=== PATIENT | male | born 1945 | race Caucasian/White ===

== ENCOUNTER 2017-03-07 15:49 | Inpatient (IN) | payer OTHER, MEDICARE ==
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
[2017-03-07] MEDS ORDERED: ONDANSETRON HCL INJ/PF 4 MG/2 ML SDV IV ONE (16:50)
[2017-03-07] MEDS ORDERED: FENTANYL CITRATE INJ/PF 100 MCG/2 ML AMPUL IV ONE (16:51)
[2017-03-07 17:17] LABS: ABSOLUTE LYMPHOCYTES (AUTO) 0.8 10^3/uL (0.5-4.7); ABSOLUTE MONOCYTES (AUTO) 0.8 10^3/uL (0.1-1.4); ABSOLUTE NEUT (AUTO) 11.2 10^3/uL (1.7-8.2); BASOPHILS % (AUTO) 0.4 % (0-2); EOSINOPHILS % (AUTO) 0.2 % (0-6); HEMATOCRIT 35.5 % (37.9-51.0); HEMOGLOBIN 12.2 g/dL (13.5-17.0); HGB HCT DIFFERENCE 1.1; LYMPHOCYTES % (AUTO) 6.2 % (13-45); MEAN CORPUSCULAR HEMOGLOBIN 30.4 pg (27.0-33.4); MEAN CORPUSCULAR HGB CONC 34.5 g/dL (32.0-36.0); MEAN CORPUSCULAR VOLUME 88 fl (80-97); MONOCYTES % (AUTO) 6.5 % (3-13); RED BLOOD COUNT 4.02 10^6/uL (4.35-5.55); RED CELL DISTRIBUTION WIDTH 13.8 % (11.5-14.0); SEGMENTED NEUTROPHILS % (AUTO) 86.7 % (42-78)
--- NOTE | 2017-03-07 17:34 | EKG REPORT ---
SEVERITY:- ABNORMAL ECG - SINUS RHYTHM INFERIOR INFARCT, AGE INDETERMINATE NONSPECIFIC T ABNORMALITIES, ANTERIOR LEADS : Confirmed by: Obdulia Bergman MD 07-Mar-2017 17:33:51
[2017-03-07 17:37] LABS: ALANINE AMINOTRANSFERASE 35 U/L (21-72); ALBUMIN 4.2 g/dL (3.5-5.0); ALKALINE PHOSPHATASE 30 U/L (38-126); ANION GAP 12 (5-19); ASPARTATE AMINO TRANSFERASE 31 U/L (17-59); BILIRUBIN,DIRECT 0.3 mg/dL (0.0-0.4); BILIRUBIN,TOTAL 0.4 mg/dL (0.2-1.3); BLOOD UREA NITROGEN 14 mg/dL (7-20); CALCIUM 9.3 mg/dL (8.4-10.2); CARBON DIOXIDE 28 mmol/L (22-30); CHLORIDE 102 mmol/L (98-107); CREATINE KINASE 100 U/L (55-170); CREATININE RESULT 0.87 mg/dL (0.52-1.25); GLUCOSE 149 mg/dL (75-110); POTASSIUM 3.8 mmol/L (3.6-5.0); SODIUM 142.4 mmol/L (137-145); TOTAL PROTEIN 6.4 g/dL (6.3-8.2)
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
[2017-03-07 18:43] LABS: PROTHROMBIN TIME 12.8 SEC (11.4-15.4)
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
[2017-03-07] MEDS ORDERED: ACETAMINOPHEN 325 MG TABLET PO PRN (19:00)
[2017-03-07] MEDS ORDERED: TRAZODONE HCL 50 MG TABLET PO PRN (19:09)
[2017-03-07] MEDS: POTASSI CL 20 MEQ/1/2NS 1L 20 MEQ/1,000 ML RTUINJ IV PRN (20:03)
[2017-03-07] MEDS: OXYCODONE-ACETAMINOPHEN 5-325 MG TABLET PO PRN (20:05)
[2017-03-07] MEDS ORDERED: MORPHINE SULFATE 10 MG/ML INJ ONE (21:58)
[2017-03-07] MEDS: MORPHINE SULFATE 10 MG/ML INJ IV PRN (22:04)
[2017-03-08] MEDS: MORPHINE SULFATE 10 MG/ML INJ IV PRN ×8 (01:47→22:46)
[2017-03-08] MEDS: OXYCODONE-ACETAMINOPHEN 5-325 MG TABLET PO PRN ×3 (02:44→20:13)
[2017-03-08 06:24] LABS: ABSOLUTE LYMPHOCYTES (AUTO) 1.1 10^3/uL (0.5-4.7); ABSOLUTE MONOCYTES (AUTO) 0.9 10^3/uL (0.1-1.4); BASOPHILS % (AUTO) 0.1 % (0-2); EOSINOPHILS % (AUTO) 0.1 % (0-6); HEMATOCRIT 26.2 % (37.9-51.0); HGB HCT DIFFERENCE 1.7; LYMPHOCYTES % (AUTO) 13.4 % (13-45); MEAN CORPUSCULAR HGB CONC 35.6 g/dL (32.0-36.0); MEAN CORPUSCULAR VOLUME 87 fl (80-97); MONOCYTES % (AUTO) 11.2 % (3-13); RED CELL DISTRIBUTION WIDTH 13.7 % (11.5-14.0); SEGMENTED NEUTROPHILS % (AUTO) 75.2 % (42-78)
[2017-03-08 06:27] LABS: HEMOGLOBIN 9.3 g/dL (13.5-17.0)
[2017-03-08 06:31] LABS: ANION GAP 9 (5-19); BLOOD UREA NITROGEN 19 mg/dL (7-20); CALCIUM 8.4 mg/dL (8.4-10.2); CARBON DIOXIDE 28 mmol/L (22-30); CHLORIDE 101 mmol/L (98-107); GLUCOSE 126 mg/dL (75-110); MAGNESIUM 2.1 mg/dL (1.6-2.3); POTASSIUM 4.6 mmol/L (3.6-5.0); SODIUM 138.3 mmol/L (137-145)
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
[2017-03-08] MEDS: POTASSI CL 20 MEQ/1/2NS 1L 20 MEQ/1,000 ML RTUINJ IV PRN (15:37)
--- NOTE | 2017-03-08 16:19 | PDOC PROGRESS REPORT ---
Subjective Progress Note for:: 03/08/17 Subjective:: This is a follow-up visit for right hip fracture. The patient's pain is under reasonable control. He is a bit disappointed that he will get a surgery to tomorrow. I have informed him that it will be at 7:30 in the morning. No acute events overnight. The patient does complain that he did not sleep a week. Physical Exam Vital Signs: Temp Pulse Resp BP Pulse Ox 99.0 F 91 14 111/69 96 03/08/17 07:34 03/08/17 07:34 03/08/17 07:34 03/08/17 07:34 03/08/17 07:34 Intake & Output 03/07/17 03/08/17 03/09/17 06:59 06:59 06:59 Intake Total 961 Output Total 350 Balance 611 Weight 77.9 kg GENERAL: This is a well-developed well-nourished appearing elderly white male resting in bed currently in no acute distress. HEART: Regular rate and rhythm. No murmurs, rubs or gallops. LUNGS: Clear to auscultation anteriorly bilaterally with equal rise and fall of the chest. ABDOMEN: Soft, nontender, nondistended with normoactive bowel sounds EXTREMETIES: No clubbing, cyanosis or edema. His right leg is shorter and outwardly rotated. 2+ peripheral pulses bilaterally. NEURO: Awake, alert and oriented 3. Cranial nerves II through XII are grossly intact. Skin: Warm dry and normal color. Results Laboratory Results: 03/08/17 05:45 03/08/17 05:45 03/08/17 03/08/17 05:45 05:45 WBC 8.0 RBC 3.00 L Hgb 9.3 L D Hct 26.2 L MCV 87 MCH 31.0 MCHC 35.6 RDW 13.7 Plt Count 132 L Seg Neutrophils % 75.2 Lymphocytes % 13.4 Monocytes % 11.2 Eosinophils % 0.1 Basophils % 0.1 Absolute Neutrophils 6.0 Absolute Lymphocytes 1.1 Absolute Monocytes 0.9 Absolute Eosinophils 0.0 Absolute Basophils 0.0 Sodium 138.3 Potassium 4.6 Chloride 101 Carbon Dioxide 28 Anion Gap 9 BUN 19 Creatinine 0.90 Est GFR ( Amer) > 60 Est GFR (Non-Af Amer) > 60 Glucose 126 H Calcium 8.4 Magnesium 2.1 Impressions: Chest X-Ray 03/07/17 00:00 IMPRESSION: NO ACUTE RADIOGRAPHIC FINDING IN THE CHEST. Hip/Pelvis X-Ray 03/07/17 16:34 IMPRESSION: Right hip fracture. Assessment & Plan - Diagnosis (1) Closed right hip fracture Is this a current diagnosis for this admission?: Yes Plan: The plan is for surgery tomorrow. Cardiology has been consulted for clearance. (2) CAD (coronary artery disease) Qualifiers: Coronary Disease-Associated Artery/Lesion type: [place] artery Plan: He states that he had a cardiac cath this past and no stents were placed at that time. He has a history of 4 stents placed in the past. He does not seem to be in any sort of antiplatelets medication. Continue nifedipine. (3) HLD (hyperlipidemia) Plan: Continue simvastatin.. (4) BPH (benign prostatic hyperplasia) Plan: He does not appear to be on any BPH medications. (5) Chronic pain Qualifiers: Chronic pain type: chronic pain syndrome Qualified Code(s): G89.4 - Chronic pain syndrome Plan: Patient has a history of fibromyalgia and injuries to his left rotator cuff. He states that he is on nightly opioids. (6) Narcotic dependence Plan: This appears to be continuous use. Patient states that he takes 10 mg of OxyContin as well as 5 mg of oxycodone and hydrocodone at night before bed. He states he also takes trazodone. (7) Chronic insomnia Plan: Likely this is due his general medical conditions. He is on 2 different agents. We will increase his trazodone to his home dose of 100 nightly. As far as his belsomra, he will need to bring that in from home. - Time Time Spent with patient: 15-24 minutes - Inpatient Certification Based on my medical assessment, after consideration of the patient's comorbidities, presenting symptoms, or acuity I expect that the services needed warrant INPATIENT care.: Yes Medical Necessity: Need Close Monitoring Due to Risk of Patient Decompensation
[2017-03-08] MEDS ORDERED: TRAZODONE HCL 50 MG TABLET PO PRN (16:28)
[2017-03-08] MEDS ORDERED: (PENDING PHARMACY ID) (Suvorexant [Belsomra] 20 MG) PO SCH ×2 (17:00→22:00)
[2017-03-08] MEDS: METOCLOPRAMIDE HCL 10 MG TABLET PO SCH (18:36)
--- NOTE | 2017-03-08 18:52 | XCELERA REPORT ---
[address] [address] Transthoracic Echocardiogram Report Name: SHAYY LEON Age: 72 yrs Gender: Male : 1945 Patient Status: Inpatient Patient Location: [address] [place] [address] Study Date: 03/08/2017 02:59 PM Height: 69 in Weight: 171 lb BSA: 1.9 m2 Procedure: A complete two-dimensional transthoracic echocardiogram was performed (2D, M-mode, spectral and color flow Doppler). The study was technically difficult with many images being suboptimal in quality. Reason For Study: cad, abn ekg Ordering Physician: DERIC CALHOUN Performed By: Evelyn Armstrong Interpretation Summary The study was technically difficult with many images being suboptimal in quality. The left ventricular ejection fraction is preserved. Consider additional methods to assess LVEF such as MUGA scan, CTA heart, cardiac MRI, RAMIN, etc. if clinically indicated. There is mild concentric left ventricular hypertrophy. The left ventricle is grossly normal size. LV diastolic function could not be adequately assessed. Regional wall motion abnormalities cannot be excluded due to limited visualization. Not all wall segments were well visualized. Right ventricular function cannot be assessed due to poor image quality. The left atrial size is normal. The right atrium is normal. There is a trace amount of mitral regurgitation There is no mitral valve stenosis. There is moderate aortic stenosis There is a trace or physiologic amount of tricuspid regurgitation Tricuspid regurgitation jet envelope not well defined to measure RV systolic pressure accurately. The aortic root is not well visualized. The inferior vena cava was not well visualized There is no pericardial effusion. MMode/2D Measurements & Calculations RVDd: 2.3 cm LVIDd: 4.1 cm FS: 35.9 % Ao root diam: 3.2 cm IVSd: 1.0 cm LVIDs: 2.7 cm EDV(Teich): 76.0 ml LVPWd: 1.0 cm ESV(Teich): 25.9 ml Ao root area: 8.0 cm2 EF(Teich): 65.9 % LA dimension: 3.2 cm LVOT diam: 2.0 cm LVOT area: 3.1 cm2 Doppler Measurements & Calculations MV E max pau: MV P1/2t max pau: Ao V2 max: LV V1 max P.2 cm/sec 62.2 cm/sec 346.9 cm/sec 3.5 mmHg MV A max pau: MV P1/2t: 47.5 msec Ao max PG: LV V1 mean P.9 cm/sec MVA(P1/2t): 4.6 cm2 48.2 mmHg 1.6 mmHg MV E/A: 0.49 MV dec slope: Ao V2 mean: LV V1 max: 383.2 cm/sec2 253.9 cm/sec 93.3 cm/sec Ao mean PG: LV V1 mean: 29.9 mmHg 57.6 cm/sec Ao V2 VTI: 70.6 cmLV V1 VTI: JT(I,D): 0.65 cm215.0 cm JT(V,D): 0.83 cm2 SV(LVOT): 46.1 ml PA V2 max: 102.2 cm/sec PA max P.2 mmHg Left Ventricle The left ventricle is grossly normal size. There is mild concentric left ventricular hypertrophy. The left ventricular ejection fraction is preserved. Consider additional methods to assess LVEF such as MUGA scan, CTA heart, cardiac MRI, RAMIN, etc. if clinically indicated. LV diastolic function could not be adequately assessed. Not all wall segments were well visualized. Regional wall motion abnormalities cannot be excluded due to limited visualization. Right Ventricle The right ventricle is grossly normal size. Right ventricular function cannot be assessed due to poor image quality. Atria The right atrium is normal. The left atrial size is normal. Interarterial septum not well visualized and not well dopplered. Cannot comment on ASD/PFO presence. Mitral Valve The mitral valve is not well visualized. There is no mitral valve stenosis. There is a trace amount of mitral regurgitation. Aortic Valve The aortic valve is mildly calcified. There is moderate aortic stenosis. No aortic regurgitation is present. Tricuspid Valve The tricuspid valve is not well visualized secondary to technical limitations. There is a trace or physiologic amount of tricuspid regurgitation. Tricuspid regurgitation jet envelope not well defined to measure RV systolic pressure accurately. Pulmonic Valve The pulmonic valve is not well visualized. Great Vessels The aortic root is not well visualized. The inferior vena cava was not well visualized. Effusions There is no pericardial effusion. : DERIC CALHOUN > Deric Calhoun
[2017-03-08] MEDS ORDERED: MORPHINE SULFATE 10 MG/ML INJ IV ONE (19:00)
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
[2017-03-08] MEDS ORDERED: PREGABALIN 25 MG CAPSULE PO SCH (22:00)
[2017-03-08] MEDS: PREGABALIN 50 MG CAPSULE PO SCH (22:48)
[2017-03-08] MEDS: CLONAZEPAM 1 MG TABLET PO SCH (22:48)
[2017-03-08] MEDS: OXYCODONE HCL SR 10 MG TABLET PO SCH (22:48)
[2017-03-08] MEDS: SIMVASTATIN 40 MG TABLET PO SCH (22:49)
[2017-03-09] MEDS: RINGERS SOLUTION,LACTATED 1,000 ML IV PRN ×2 (00:54→08:20)
[2017-03-09] MEDS: MORPHINE SULFATE 10 MG/ML INJ IV PRN ×4 (02:50→18:00)
[2017-03-09] MEDS ORDERED: CEFAZOLIN 2 GM/D5W RTU 2 GM/50 ML RTUPB IV PRN (05:00)
[2017-03-09 06:38] LABS: ABSOLUTE LYMPHOCYTES (AUTO) 1.5 10^3/uL (0.5-4.7); ABSOLUTE MONOCYTES (AUTO) 0.9 10^3/uL (0.1-1.4); ABSOLUTE NEUT (AUTO) 5.4 10^3/uL (1.7-8.2); BASOPHILS % (AUTO) 0.3 % (0-2); EOSINOPHILS % (AUTO) 0.3 % (0-6); HEMATOCRIT 21.3 % (37.9-51.0); HGB HCT DIFFERENCE 1.2; LYMPHOCYTES % (AUTO) 19.6 % (13-45); MEAN CORPUSCULAR VOLUME 88 fl (80-97); RED BLOOD COUNT 2.41 10^6/uL (4.35-5.55); RED CELL DISTRIBUTION WIDTH 13.6 % (11.5-14.0); SEGMENTED NEUTROPHILS % (AUTO) 68.8 % (42-78); WHITE BLOOD COUNT 7.8 10^3/uL (4.0-10.5)
[2017-03-09 06:41] LABS: HEMOGLOBIN 7.5 g/dL (13.5-17.0)
[2017-03-09 06:45] LABS: ANION GAP 7 (5-19); BLOOD UREA NITROGEN 14 mg/dL (7-20); CALCIUM 8.4 mg/dL (8.4-10.2); CARBON DIOXIDE 29 mmol/L (22-30); CHLORIDE 100 mmol/L (98-107); CREATININE RESULT 0.71 mg/dL (0.52-1.25); GLUCOSE 121 mg/dL (75-110); POTASSIUM 4.4 mmol/L (3.6-5.0); SODIUM 135.5 mmol/L (137-145)
[2017-03-09] MEDS ORDERED: ACETAMINOPHEN 325 MG TABLET PO PRN (06:47)
[2017-03-09] MEDS ORDERED: FUROSEMIDE 20 MG TABLET PO PRN (06:47)
[2017-03-09] MEDS ORDERED: NORMAL SALINE 250 ML IV PRN ×2 (06:47)
--- NOTE | 2017-03-09 06:49 | PDOC PROGRESS REPORT ---
Subjective Progress Note for:: 03/09/17 Physical Exam Vital Signs: Temp Pulse Resp BP Pulse Ox 37.5 C 99 14 110/65 94 03/09/17 03:51 03/09/17 03:51 03/09/17 03:51 03/09/17 03:51 03/09/17 03:51 Intake & Output 03/07/17 03/08/17 03/09/17 06:59 06:59 06:59 Intake Total 961 2155 Output Total 350 925 Balance 611 1230 Weight 77.9 kg 83.5 kg Results Laboratory Results: 03/09/17 06:05 03/09/17 06:05 03/09/17 03/09/17 06:05 06:05 WBC 7.8 RBC 2.41 L Hgb 7.5 L Hct 21.3 L MCV 88 MCH 31.0 MCHC 35.0 RDW 13.6 Plt Count 101 L Seg Neutrophils % 68.8 Lymphocytes % 19.6 Monocytes % 11.0 Eosinophils % 0.3 Basophils % 0.3 Absolute Neutrophils 5.4 Absolute Lymphocytes 1.5 Absolute Monocytes 0.9 Absolute Eosinophils 0.0 Absolute Basophils 0.0 Sodium 135.5 L Potassium 4.4 Chloride 100 Carbon Dioxide 29 Anion Gap 7 BUN 14 Creatinine 0.71 Est GFR ( Amer) > 60 Est GFR (Non-Af Amer) > 60 Glucose 121 H Calcium 8.4 Magnesium 2.0 Impressions: Chest X-Ray 03/07/17 00:00 IMPRESSION: NO ACUTE RADIOGRAPHIC FINDING IN THE CHEST. Hip/Pelvis X-Ray 03/07/17 16:34 IMPRESSION: Right hip fracture. Assessment & Plan - Diagnosis (1) Closed right hip fracture Is this a current diagnosis for this admission?: Yes Plan: Patient's had adequate preoperative cardiology consultation which reveals significant cardiac disease without modifiable factors. 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 Surgery was canceled for this morning the patient's furnished with a regular diet. - Time Time Spent with patient: 15-24 minutes Anticipated [facility] Within: Other
[2017-03-09] MEDS ORDERED: PREGABALIN 25 MG CAPSULE PO SCH (08:00)
[2017-03-09] MEDS ORDERED: ISOSORBIDE MONONITRATE 30 MG TAB.ER.24H PO SCH (10:00)
[2017-03-09] MEDS ORDERED: FLUTICASONE NASAL SPRAY 50 MCG/SPRY 120 SPRAY/16 GM NASL SCH (10:00)
[2017-03-09] MEDS ORDERED: NIFEDIPINE 30 MG TAB.ER.24 PO SCH (10:00)
[2017-03-09] MEDS ORDERED: METOPROLOL SUCCINATE 25 MG TAB.SR.24H PO SCH (10:00)
[2017-03-09] MEDS: OXYCODONE HCL SR 10 MG TABLET PO SCH ×2 (10:31→22:55)
[2017-03-09] MEDS: RANOLAZINE 500 MG TAB.SR.12H PO SCH ×2 (10:40→18:02)
[2017-03-09] MEDS: OXYCODONE-ACETAMINOPHEN 5-325 MG TABLET PO PRN ×2 (13:29→20:42)
--- NOTE | 2017-03-09 15:22 | RADIOLOGY REPORT (SQ) ---
EXAM DESCRIPTION: CT PELVIS WITHOUT COMPLETED DATE/TIME: 03/09/2017 2:41 pm REASON FOR STUDY: precipitous drop in hgb in setting of a broken hip COMPARISON: Right hip films dated 03/07/2017 TECHNIQUE: CT scan of the pelvis performed without intravenous or oral contrast. Images reviewed wi th soft tissue and bone windows. Reconstructed coronal and sagittal MPR images reviewed. All images stored on PACS. All CT scanners at this facility use dose modulation, iterative reconstruction, and/or weight based d osing when appropriate to reduce radiation dose to as low as reasonably achievable (ALARA). [facility]: Dose Right [facility]: CareDose [facility]: Dose Right [facility]: Teradose 4D [facility]: [employer] RADIATION DOSE: Up-to-date CT equipment and radiation dose reduction techniques were employed. CTDIv ol: 7.2 mGy. DLP: 314 mGy-cm. mGy. LIMITATIONS: None. FINDINGS: PELVIC BONES: No acute fracture. No worrisome bone lesions. VISUALIZED SPINE: No acute findings. HIP(S): There is a comminuted fracture of the proximal right femur at the level of the proximal femor al diaphysis which extends superiorly obliquely to include the lesser trochanter. There is some over riding of the fracture fragments. No left hip fracture is identified. PELVIC SOFT TISSUES: No significant findings. EXTRAPELVIC SOFT TISSUES: There is extensive associated soft tissue swelling at the fracture site wit h some loss of the normal fat and soft tissue planes consistent with an associated hematoma and soft tissue injury. There is linear soft tissue stranding in the adjacent subcutaneous fat which could re present a component of hematoma or edematous changes. OTHER: Apparatus related to penile prostheses is identified. IMPRESSION: Comminuted fracture of the proximal right femur as noted above. There is extensive asso ciated soft tissue swelling at the fracture site with some loss of the normal fat and soft tissue edvin kika consistent with an associated hematoma and soft tissue injury. There is linear soft tissue stran ding in the adjacent subcutaneous fat as noted above. Other findings as noted above TECHNICAL DOCUMENTATION: JOB ID: [id number] Quality ID # [id number]: Final reports with documentation of one or more dose reduction techniques (e.g., Au tomated exposure control, adjustment of the mA and/or kV according to patient size, use of iterative reconstruction technique) 2010 [employer]- All Rights Reserved
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
[2017-03-09 16:56] LABS: ABSOLUTE LYMPHOCYTES (AUTO) 1.1 10^3/uL (0.5-4.7); ABSOLUTE MONOCYTES (AUTO) 0.9 10^3/uL (0.1-1.4); ABSOLUTE NEUT (AUTO) 5.5 10^3/uL (1.7-8.2); BASOPHILS % (AUTO) 0.2 % (0-2); EOSINOPHILS % (AUTO) 0.2 % (0-6); HEMATOCRIT 24.3 % (37.9-51.0); HEMOGLOBIN 8.8 g/dL (13.5-17.0); HGB HCT DIFFERENCE 2.1; LYMPHOCYTES % (AUTO) 14.1 % (13-45); MEAN CORPUSCULAR HEMOGLOBIN 31.6 pg (27.0-33.4); MEAN CORPUSCULAR HGB CONC 36.1 g/dL (32.0-36.0); MEAN CORPUSCULAR VOLUME 88 fl (80-97); RED BLOOD COUNT 2.78 10^6/uL (4.35-5.55); SEGMENTED NEUTROPHILS % (AUTO) 73.5 % (42-78); WHITE BLOOD COUNT 7.5 10^3/uL (4.0-10.5)
[2017-03-09] MEDS: METOCLOPRAMIDE HCL 10 MG TABLET PO SCH (18:02)
--- NOTE | 2017-03-09 18:58 | PDOC PROGRESS REPORT ---
Subjective Progress Note for:: 03/09/17 Subjective:: Patient was seen in the morning. Patient's and daughter at bedside. They do want him transferred to [facility]. I agree with their decision. Told him that he would probably be going under orthopedic service. Physical Exam Vital Signs: Temp Pulse Resp BP Pulse Ox 99.1 F 81 23 H 107/58 L 94 03/09/17 15:25 03/09/17 15:25 03/09/17 15:25 03/09/17 15:25 03/09/17 15:25 Intake & Output 03/08/17 03/09/17 03/10/17 06:59 06:59 06:59 Intake Total 961 2155 1150 Output Total 350 925 950 Balance 611 1230 200 Weight 77.9 kg 83.5 kg Exam: GENERAL: well-nourished and in no acute distress. Alert and oriented x3 HEAD: Atraumatic, normocephalic. EYES: Pupils equal round and reactive to light, extraocular movements intact, sclera anicteric, conjunctiva are normal. ENT: TMs normal, nares patent, oropharynx clear without exudates. Moist mucous membranes. No oral ulcerations or bleeding gums noted NECK: supple without lymphadenopathy. Trachea is central. No cervical or axillary lymphadenopathy noted. Carotids are 2+, JVD WNL LUNGS: Respiration seems nonlabored, no significant accessory muscle action noted. Breath sounds clear to auscultation bilaterally and equal noted. No wheezes rales or rhonchi noted. No significant dullness noted on percussion. CHEST: Palpation of the chest wall shows no significant chest wall tenderness. No other significant abnormalities noted. HEART: [place] DRY BOSS, No PSH, 1/6 WILFRED aortic area, 1/6 gregory systolic murmur mitral area, no rubs, no gallops. ABDOMEN: Soft, no significant tenderness appreciated, normoactive bowel sounds. No guarding, no rebound. No rigidity noted . No masses appreciated. EXTREMITIES: Pedal pulses are 1-2+, no calf tenderness noted. No clubbing or cyanosis.trace to 1+ pedal edema noted NEUROLOGICAL: Focused neurological exam showed no significant neurologic deficit. Normal speech, no focal weakness appreciated. PSYCH: Normal mood, normal affect. Judgment and insight within normal limits. SKIN: No significant ecchymosis, rash, significant bruising noted in the right thigh and hip area. MUSCULOSKELETAL EXAM: No significant joint swelling noted. Findings of right hip fracture noted. Results Laboratory Results: 03/09/17 16:45 03/09/17 06:05 03/09/17 03/09/17 03/09/17 06:05 06:05 07:25 WBC 7.8 RBC 2.41 L Hgb 7.5 L Hct 21.3 L MCV 88 MCH 31.0 MCHC 35.0 RDW 13.6 Plt Count 101 L Seg Neutrophils % 68.8 Lymphocytes % 19.6 Monocytes % 11.0 Eosinophils % 0.3 Basophils % 0.3 Absolute Neutrophils 5.4 Absolute Lymphocytes 1.5 Absolute Monocytes 0.9 Absolute Eosinophils 0.0 Absolute Basophils 0.0 Sodium 135.5 L Potassium 4.4 Chloride 100 Carbon Dioxide 29 Anion Gap 7 BUN 14 Creatinine 0.71 Est GFR ( Amer) > 60 Est GFR (Non-Af Amer) > 60 Glucose 121 H Calcium 8.4 Magnesium 2.0 Blood Type A POSITIVE Antibody Screen NEGATIVE 03/09/17 16:45 WBC 7.5 RBC 2.78 L Hgb 8.8 L Hct 24.3 L MCV 88 MCH 31.6 MCHC 36.1 H RDW 13.0 Plt Count 96 L Seg Neutrophils % 73.5 Lymphocytes % 14.1 Monocytes % 12.0 Eosinophils % 0.2 Basophils % 0.2 Absolute Neutrophils 5.5 Absolute Lymphocytes 1.1 Absolute Monocytes 0.9 Absolute Eosinophils 0.0 Absolute Basophils 0.0 Sodium Potassium Chloride Carbon Dioxide Anion Gap BUN Creatinine Est GFR ( Amer) Est GFR (Non-Af Amer) Glucose Calcium Magnesium Blood Type Antibody Screen EKG Comments: Telemetry strip shows sinus rhythm Impressions: Chest X-Ray 03/07/17 00:00 IMPRESSION: NO ACUTE RADIOGRAPHIC FINDING IN THE CHEST. Hip/Pelvis X-Ray 03/07/17 16:34 IMPRESSION: Right hip fracture. Pelvis CT 03/09/17 00:00 IMPRESSION: Comminuted fracture of the proximal right femur as noted above. There is extensive associated soft tissue swelling at the fracture site with some loss of the normal fat and soft tissue planes consistent with an associated hematoma and soft tissue injury. There is linear soft tissue stranding in the adjacent subcutaneous fat as noted above. Other findings as noted above Assessment & Plan - Diagnosis (1) CAD (coronary artery disease) Qualifiers: Coronary Disease-Associated Artery/Lesion type: [place] artery Associated angina: angina presence unspecified Is this a current diagnosis for this admission?: Yes (2) Aortic stenosis Qualifiers: Cardiac valve disease etiology: nonrheumatic Qualified Code(s): I35.0 - Nonrheumatic aortic (valve) stenosis Is this a current diagnosis for this admission?: Yes (3) Closed right hip fracture Is this a current diagnosis for this admission?: Yes (4) HLD (hyperlipidemia) Qualifiers: Hyperlipidemia type: unspecified Qualified Code(s): E78.5 - Hyperlipidemia , unspecified Is this a current diagnosis for this admission?: Yes (5) Preoperative cardiovascular examination Is this a current diagnosis for this admission?: Yes - Notes Notes: Patient's medical regimen was optimized by adding Ranexa 500 mg p.o. twice daily. Continue with high-dose statin therapy and other ongoing stable home medications. 2D echo results were reviewed with the patient and family. Recent cardiac evaluation performed at [facility] was also reviewed with the family. Patient was asked to report any further problems. - Time Time with patient: 15-25 minutes - CODE STATUS was discussed, patient remains full code. Surrogate decision-maker unchanged. Multiple medical problems were addressed. More than 50% of the time spent coordinating care, discussing management plans with involved caregivers. Management plans discussed with involved personnels. Medical decision making was of moderate to high complexity , patient's has multiple comorbidities. Medications reviewed and adjusted accordingly: Yes
[2017-03-09] MEDS: PREGABALIN 50 MG CAPSULE PO SCH (22:55)
[2017-03-09] MEDS: SIMVASTATIN 40 MG TABLET PO SCH (22:55)
[2017-03-09] MEDS: CLONAZEPAM 1 MG TABLET PO SCH (22:55)
[2017-03-10 00:19] LABS: ABSOLUTE LYMPHOCYTES (AUTO) 1.1 10^3/uL (0.5-4.7); ABSOLUTE MONOCYTES (AUTO) 0.8 10^3/uL (0.1-1.4); ABSOLUTE NEUT (AUTO) 4.6 10^3/uL (1.7-8.2); BASOPHILS % (AUTO) 0.3 % (0-2); EOSINOPHILS % (AUTO) 0.6 % (0-6); HEMOGLOBIN 8.3 g/dL (13.5-17.0); HGB HCT DIFFERENCE 1.9; LYMPHOCYTES % (AUTO) 16.8 % (13-45); MEAN CORPUSCULAR HEMOGLOBIN 31.3 pg (27.0-33.4); MEAN CORPUSCULAR HGB CONC 36.1 g/dL (32.0-36.0); MEAN CORPUSCULAR VOLUME 87 fl (80-97); MONOCYTES % (AUTO) 12.6 % (3-13); RED BLOOD COUNT 2.65 10^6/uL (4.35-5.55); RED CELL DISTRIBUTION WIDTH 13.2 % (11.5-14.0); SEGMENTED NEUTROPHILS % (AUTO) 69.7 % (42-78); WHITE BLOOD COUNT 6.5 10^3/uL (4.0-10.5)
[2017-03-10 04:01] VITALS: BP 103/55
== END 2017-03-10 04:50 | disposition short-term general hospital (02) | DRG 536 ==
LOC: ER 15:49 → EH 19:00 → UNDOADMIN 19:14 → EH 19:14 → 3S 20:30 → EH 20:30
PROVIDERS: ADMIT Family Medicine; ATTEND Family Medicine
PROC: 30233N1 Transfusion of Nonautologous Red Blood Cells into Peripheral Vein, Percutaneous Approach (ICD-10-PCS; principal; 2017-03-09)
DX: S72.21XA Displaced subtrochanteric fracture of right femur, initial encounter for closed fracture (principal); D62 Acute posthemorrhagic anemia; V43.52XA Car driver injured in collision with other type car in traffic accident, initial encounter; Y92.413 State road as the place of occurrence of the external cause; I25.10 Atherosclerotic heart disease of native coronary artery without angina pectoris; N40.0 Benign prostatic hyperplasia without lower urinary tract symptoms; G89.4 Chronic pain syndrome; I10 Essential (primary) hypertension; E78.5 Hyperlipidemia, unspecified; I35.0 Nonrheumatic aortic (valve) stenosis; K21.9 Gastro-esophageal reflux disease without esophagitis; F51.04 Psychophysiologic insomnia; M79.7 Fibromyalgia; I25.2 Old myocardial infarction; Z79.891 Long term (current) use of opiate analgesic; Z95.5 Presence of coronary angioplasty implant and graft; Z86.711 Personal history of pulmonary embolism; Z87.891 Personal history of nicotine dependence
CPT/HCPCS: 36415; 36430; 71010; 72192; 80048; 80053; 82550; 83735; 84484; 85025; 85610; 86850; 86900; 86901; 86920; 93005; 93010; 93306; 96374; 96375; 99285; J2270; J2405; J3010; J3480; J3490; J7120; L3908; P9016